=== PATIENT | female | born 1965 | race Caucasian/White ===

== ENCOUNTER → 2016-09-09 | Outpatient (CLI) | payer OTHER ==
--- NOTE | 2016-09-09 14:57 | MA ---
Screening Digital Mammogram With iCAD Analysis Clinical Indications: Routine screening. Patient has had a benign right breast stereotactic biopsy. Technique: Standard cephalocaudal projections are obtained. Digital breast tomosynthesis was performe d in the MLO projection with reconstruction at 1.0 mm slice thickness and composite MLO views reconst ructed. This examination is processed by the iCAD computer aided detection system. Comparison: September 2015, August 2014, August 2013, August 2012, August 2011, August 2010, adela2009, January 2009, August 2008. Breast density: Type B; Scattered fibroglandular densities. Findings: CAD was reviewed. No masses, suspicious calcifications or secondary signs of malignancy are seen. There has been no significant change in the appearance of either breast. Impression: Negative mammogram. BI-RADS 1. Recommendation: Routine mammographic screening in one year as long as physical examination is negativ [facility] Negative mammography should not preclude additional workup of a clinically suspicious finding. The patient's information is entered into a reminder system with a target due date for her next mammo gram.
== END ==
LOC: FIMAGING 12:39
DX: Z12.31 Encounter for screening mammogram for malignant neoplasm of breast (principal)
CPT/HCPCS: G0202

== ENCOUNTER → 2017-09-10 | Outpatient (CLI) | payer OTHER | LOC: FIMAGING 12:54 | PROVIDERS: ATTEND Physician Assistant | DX: Z12.31 Encounter for screening mammogram for malignant neoplasm of breast (principal) ==

== ENCOUNTER 2017-09-23 09:55 | Observation (INO) | payer OTHER ==
--- NOTE | 2017-09-23 09:56 | EDPHY ---
H & P Time Seen by Provider: 09/23/17 09:56 Constitutional: Initial Vital Signs Heart Rate 67 09/23/17 10:11 Respiratory Rate 24 H 09/23/17 10:11 Blood Pressure 119/79 09/23/17 10:11 O2 Sat (%) 100 09/23/17 10:11 O2 Delivery Mode Nasal Cannula O2 (L/minute) 2 Allergies/Adverse Reactions: amoxicillin [Amoxicillin] Allergy (Severe, Verified 09/23/17 10:10) Anaphylaxis meperidine [Meperidine] Allergy (Intermediate, Verified 09/23/17 10:10) Vomiting NUTS Allergy (Severe, Uncoded 09/23/17 10:10) Anaphylaxis Home Medications: Medication Instructions Recorded Advair 100/50 (*) 09/23/17 Lisinopril 09/23/17 Medical Decision Making - Diagnostics Imaging Results: Imaging Impressions Abdomen Ultrasound 09/23/17 10:15 Impression: 1. Large cystic mass in the right side of the abdomen extending from the gallbladder fossa inferiorly to the pelvis with soft tissue components posteriorly. There is tapering along the inferior margin. This could represent cystadenoma/cystadenocarcinoma carcinoma of the right ovary versus possibility of large hydrosalpinx or isolated fallopian tube torsion. Mucinous tumor of the appendix may also be considered. CT of the abdomen and pelvis with contrast is recommended for further characterization. 2. Numerous uterine fibroids are identified. 3. The left ovary appears to be normal. Findings discussed with Doug Fishman MD at 12:00 hour, 09/23/2017. Pelvic/Renal Ultrasound 09/23/17 10:15 Impression: 1. Large cystic mass in the right side of the abdomen extending from the gallbladder fossa inferiorly to the pelvis with soft tissue components posteriorly. There is tapering along the inferior margin. This could represent cystadenoma/cystadenocarcinoma carcinoma of the right ovary versus possibility of large hydrosalpinx or isolated fallopian tube torsion. Mucinous tumor of the appendix may also be considered. CT of the abdomen and pelvis with contrast is recommended for further characterization. 2. Numerous uterine fibroids are identified. 3. The left ovary appears to be normal. Findings discussed with Doug Fishman MD at 12:00 hour, 09/23/2017. Abdomen CT 09/23/17 11:58 Impression: 1. Large complex cystic mass right mid abdomen extending into the pelvis with twisting of the right adnexal pedicle adjacent to the uterus. This could represent large hemorrhagic or neoplastic ovarian cystic lesion with torsion versus possibility of fallopian tube torsion. 2. Moderate thickening of the appendix in the right lower quadrant. There may be superimposed appendicitis versus possibility of vascular compromise of the appendix secondary to the right adnexal torsion. 3. Probable uterine fibroids. Consider follow-up imaging as clinically directed. 4. Mild right-sided hydronephrosis secondary to compression upon the right ureter by the right sided abdominal mass. 5. Hypodense lesions in the liver probably representing hemangiomas. Consider follow-up ultrasound of the liver to confirm adequate visualization and subsequent follow-up with ultrasound in 6 months. Findings discussed with Doug Fishman MD at 14:30 hour, 09/23/2017. Imaging: Discussed imaging studies w/ inbound call center agent Radiologist ED Course/Re-evaluation: CHIEF COMPLAINT: RLQ pain HISTORY OF PRESENT ILLNESS: This patient is a 52 y/o female complaining of sudden onset RLQ pain. This morning, she felt well and went out for her regular errands. She developed a stabbing pain in her lower right quadrant, and returned home and took ibuprofen for pain relief. Later this morning, she went for a routine mammography appointment and her pain returned. She went to the bathroom and could not get up due to pain. The pain is localized to her right lower quadrant and feels like "stabbing". She is unable to get comfortable. She has been nauseous and vomited earlier. LMP one week ago but is perimenopausal. She denies fever, chills, diarrhea, urinary complaints, or other associated symptoms. REVIEW OF SYSTEMS: A 10 point review of systems was performed and is negative with the exception of the elements mentioned in the history of present illness. PHYSICAL EXAM: HR, BP, O2 Sat, RR. Temp noted General Appearance: Alert, well hydrated, appropriate, and non-toxic appearing. Head: Atraumatic without scalp tenderness or obvious injury Eyes: Pupils equal, round, reactive to light and accommodation, EOMI, no trauma , no injection. Ears: Clear bilaterally, no perforation, normal landmarks Nose: Atraumatic, no rhinorrhea, clear. Throat: There is no erythema or exudates, no lesions, normal tonsils, mucus membranes moist. Neck: Supple, 2+ carotid upstroke, nontender, no lymphadenopathy. Respiratory: No retractions, no distress, no wheezes, and no accessory muscle use. Lungs are clear to auscultation bilaterally. Cardiovascular: Regular rate and rhythm, no murmurs, rubs, or gallops. Bilateral carotid, radial, dorsalis pedis, and posterior tibial pulses intact. Good capillary refill all extremities. Gastrointestinal: Exquisite RLQ tenderness. Abdomen is soft, non-distended, no masses, no rebound, no guarding, no peritoneal signs. Musculoskeletal: Normal active ROM of all extremities, atraumatic. Neurological: Alert, appropriate, and interactive. The patient has normal DTRs and non-focal cranial nerves, motor, sensory, and cerebellar exam. Skin: No rashes, good turgor, no nodules on palpation. Past medical history: Uterine fibroids. Past surgical history: Noncontributory. Family history: Noncontributory. Social history: Lives in [place]. . PCP: Erin Cano. DIAGNOSTICS/PROCEDURES/CRITICAL CARE TIME: DIFFERENTIAL DIAGNOSIS: The differential diagnosis for the patient's abdominal pain included but was not limited to ovarian cyst, pelvic inflammatory disease, ovarian torsion, urinary tract infection, ectopic , cholecystitis, and appendicitis. MEDICAL DECISION MAKIN52 year old female presents with acute onset exquisite RLQ pain. Plan for US RLQ , labs including CBC, chemistries, liver/lipase, BHCG. 11:[address] Glynn, radiologist. US abdomen shows abnormal finding, plan for CT abdomen/pelvis with contrast for further evaluation. 14:[address] Glynn, radiologist. CT shows probable torsed hemorrhagic ovarian cyst. Additionally, the patient has an enlarged appendix, 11mm, positive for appendicitis. Plan to consult with Dr. Lira, general surgeon. 14:[address] Lira, general surgeon. He is currently in surgery but will consult. Plan to consult with STOPE MINER. 14:50 Reassessed patient. Discussed results of imaging studies. Plan to admit for perioperative management. Sheis comfortable with this plan. 15:00 Care of this patient transferred to Dr. Stokes at shift change. STOPE MINER and surgical consults pending. 15:[address] Cespedes, STOPE MINER. - Data Points Laboratory Results: Laboratory Results 09/23/17 10:27 09/23/17 10:27 09/23/17 09/23/17 09/23/17 11:20 10:27 10:27 WBC RBC Hgb POC Hgb Hct POC Hct MCV MCH MCHC RDW Plt Count MPV Neut % (Auto) Lymph % (Auto) [place] % (Auto) Eos % (Auto) Baso % (Auto) Nucleat RBC Rel Count Absolute Neuts (auto) Absolute Lymphs (auto) Absolute Monos (auto) Absolute Eos (auto) Absolute Basos (auto) Absolute Nucleated RBC Immature Gran % Immature Gran # POC Sodium Sodium 144 mEq/L mEq/L (135-145) POC Potassium Potassium 4.2 mEq/L mEq/L (3.5-5.2) POC Chloride Chloride 110 mEq/L mEq/L (97-110) Carbon Dioxide 16 mEq/l L mEq/l (22-31) Anion Gap 18 mEq/L H mEq/L (8-16) POC BUN BUN 15 mg/dL mg/dL (7-23) Creatinine 0.7 mg/dL mg/dL (0.6-1.0) POC Creatinine Estimated GFR > 60 Glucose 110 mg/dL H mg/dL (70-100) POC Glucose Calcium 9.9 mg/dL mg/dL (8.5-10.4) Total Bilirubin 0.7 mg/dL mg/dL (0.1-1.4) Conjugated Bilirubin 0.3 mg/dL mg/dL (0.0-0.5) Unconjugated Bilirubin 0.4 mg/dL mg/dL (0.0-1.1) AST 28 IU/L IU/L (14-46) ALT 33 IU/L IU/L (9-52) Alkaline Phosphatase 67 IU/L IU/L (38-126) Total Protein 7.2 g/dL g/dL (6.3-8.2) Albumin 4.5 g/dL g/dL (3.5-5.0) Lipase 67 IU/L IU/L (23-300) Beta HCG, Qual NEGATIVE Urine Color PALE YELLOW Urine Appearance CLEAR Urine pH 7.0 (5.0-7.5) Ur Specific [place] 1.014 (1.002-1.030) Urine Protein NEGATIVE (NEGATIVE) Urine Ketones 1+ H (NEGATIVE) Urine Blood NEGATIVE (NEGATIVE) Urine Nitrate NEGATIVE (NEGATIVE) Urine Bilirubin NEGATIVE (NEGATIVE) Urine Urobilinogen NEGATIVE EU EU (0.2-1.0) Ur Leukocyte Esterase NEGATIVE (NEGATIVE) Urine RBC 1-3 /hpf /hpf (0-3) Urine WBC 1-3 /hpf /hpf (0-3) Ur Epithelial Cells TRACE /lpf /lpf (NONE-1+) Urine Bacteria TRACE /hpf H /hpf (NONE SEEN) Urine Mucus TRACE /lpf /lpf (NONE-1+) Urine Glucose 1+ H (NEGATIVE) 09/23/17 09/23/17 09/23/17 10:27 10:23 10:01 WBC 11.19 10^3/uL H 10^3/uL (3.80-9.50) RBC 4.97 10^6/uL 10^6/uL (4.18-5.33) Hgb 15.0 g/dL g/dL (12.6-16.3) POC Hgb 15.0 gm/dL gm/dL Pending (12.6-16.3) Hct 44.6 % % (38.0-47.0) POC Hct 44 % % < 15 % L* % (38-47) (38-47) MCV 89.7 fL fL (81.5-99.8) MCH 30.2 pg pg (27.9-34.1) MCHC 33.6 g/dL g/dL (32.4-36.7) RDW 12.5 % % (11.5-15.2) Plt Count 223 10^3/uL 10^3/uL (150-400) MPV 9.3 fL fL (8.7-11.7) Neut % (Auto) 85.2 % H % (39.3-74.2) Lymph % (Auto) 10.5 % L % (15.0-45.0) [place] % (Auto) 3.2 % L % (4.5-13.0) Eos % (Auto) 0.1 % L % (0.6-7.6) Baso % (Auto) 0.4 % % (0.3-1.7) Nucleat RBC Rel Count 0.0 % % (0.0-0.2) Absolute Neuts (auto) 9.54 10^3/uL H 10^3/uL (1.70-6.50) Absolute Lymphs (auto) 1.17 10^3/uL 10^3/uL (1.00-3.00) Absolute Monos (auto) 0.36 10^3/uL 10^3/uL (0.30-0.80) Absolute Eos (auto) 0.01 10^3/uL L 10^3/uL (0.03-0.40) Absolute Basos (auto) 0.04 10^3/uL 10^3/uL (0.02-0.10) Absolute Nucleated RBC 0.00 10^3/uL 10^3/uL (0-0.01) Immature Gran % 0.6 % % (0.0-1.1) Immature Gran # 0.07 10^3/uL 10^3/uL (0.00-0.10) POC Sodium 143 mEq/L mEq/L 155 mEq/L H mEq/L (135-145) (135-145) Sodium POC Potassium 3.8 mEq/L mEq/L < 2.0 mEq/L L* mEq/L (3.3-5.0) (3.3-5.0) Potassium POC Chloride 104 mEq/L mEq/L 125 mEq/L H mEq/L (97-110) (97-110) Chloride Carbon Dioxide Anion Gap POC BUN 31 mg/dL H mg/dL < 3 mg/dL L mg/dL (7-23) (7-23) BUN Creatinine POC Creatinine 0.7 mg/dL D mg/dL < 0.2 mg/dL L mg/dL (0.6-1.0) (0.6-1.0) Estimated GFR Glucose POC Glucose 116 mg/dL H mg/dL 38 mg/dL L* mg/dL (70-100) (70-100) Calcium Total Bilirubin Conjugated Bilirubin Unconjugated Bilirubin AST ALT Alkaline Phosphatase Total Protein Albumin Lipase Beta HCG, Qual Urine Color Urine Appearance Urine pH Ur Specific [place] Urine Protein Urine Ketones Urine Blood Urine Nitrate Urine Bilirubin Urine Urobilinogen Ur Leukocyte Esterase Urine RBC Urine WBC Ur Epithelial Cells Urine Bacteria Urine Mucus Urine Glucose Medications Given: Discontinued Medications Hydromorphone HCl (Dilaudid) 1 mg IVP EDNOW ONE Stop: 09/23/17 10:15 Last Admin: 09/23/17 10:22 Dose: 1 mg Hydromorphone HCl (Dilaudid) 0.5 mg IVP EDNOW ONE Stop: 09/23/17 11:00 Last Admin: 09/23/17 11:00 Dose: 0.5 mg Hydromorphone HCl (Dilaudid) 0.5 mg IVP EDNOW ONE Stop: 09/23/17 13:20 Last Admin: 09/23/17 13:20 Dose: 0.5 mg Sodium Chloride (Ns) 1,000 mls @ 0 mls/hr IV EDNOW ONE; Wide Open PRN Reason: Protocol Stop: 09/23/17 10:15 Last Admin: 09/23/17 10:22 Dose: 1,000 mls Ondansetron HCl (Zofran) 4 mg IVP EDNOW ONE Stop: 09/23/17 10:15 Last Admin: 09/23/17 10:22 Dose: 4 mg Ondansetron HCl (Zofran) 4 mg IVP EDNOW ONE Stop: 09/23/17 14:07 Last Admin: 09/23/17 14:09 Dose: 4 mg Point of Care Test Results: 09/23/17 09/23/17 10:01 10:23 POC Sodium 155 H 143 POC Potassium < 2.0 L* 3.8 POC Chloride 125 H 104 POC BUN < 3 L 31 H POC Creatinine < 0.2 L 0.7 D POC Glucose 38 L* 116 H Departure - Departure Disposition: [facility] Inpatient Acute Clinical Impression: Hemorrhagic cyst of right ovary Appendicitis Qualifiers: Appendicitis type: acute appendicitis Acute appendicitis type: other Qualified Code(s): K35.89 - Other acute appendicitis Condition: Fair Referrals: Erin Cano PA [Primary Care Provider] - As per Instructions Report Scribed for: Doug Fishman Report Scribed by: Argelia Lam Date of Report: 09/23/17 Time of Report: 15:10
[2017-09-23] MEDS ORDERED: ONDANSETRON 4 MG/2 ML VIAL IVP ONE ×3 (10:14→17:03)
[2017-09-23] MEDS ORDERED: NS 1,000 ML IV ONE (10:14)
[2017-09-23] MEDS ORDERED: HYDROmorphONE/DILAUDID 1 MG/ML INJ IVP ONE ×4 (10:14→15:57)
[2017-09-23] MEDS ORDERED: HYDROmorphONE/DILAUDID 2 MG/ML INJ ONE ×2 (10:17→13:16)
[2017-09-23 10:37] LABS: PLATELET COUNT 223 10^3/uL (150-400)
[2017-09-23] MEDS ORDERED: ONDANSETRON 4 MG/2 ML VIAL ONE (14:08)
--- NOTE | 2017-09-23 15:43 | PDCONSULT ---
[employer] Note: Physician requesting Consult: Dr. Mary Physician consulting: Dr. Jon Diagnosis: large right ovarian cyst with torsion, enlarged appendix and fibroid uterus. large right complex cystic mass 15 x 10 x 9 cm. Please see dictation Laboratory Results 09/23/17 10:27 09/23/17 10:27 09/23/17 09/23/17 09/23/17 11:20 10:27 10:27 WBC RBC Hgb POC Hgb Hct POC Hct MCV MCH MCHC RDW Plt Count MPV Neut % (Auto) Lymph % (Auto) [place] % (Auto) Eos % (Auto) Baso % (Auto) Nucleat RBC Rel Count Absolute Neuts (auto) Absolute Lymphs (auto) Absolute Monos (auto) Absolute Eos (auto) Absolute Basos (auto) Absolute Nucleated RBC Immature Gran % Immature Gran # POC Sodium Sodium 144 mEq/L mEq/L (135-145) POC Potassium Potassium 4.2 mEq/L mEq/L (3.5-5.2) POC Chloride Chloride 110 mEq/L mEq/L (97-110) Carbon Dioxide 16 mEq/l L mEq/l (22-31) Anion Gap 18 mEq/L H mEq/L (8-16) POC BUN BUN 15 mg/dL mg/dL (7-23) Creatinine 0.7 mg/dL mg/dL (0.6-1.0) POC Creatinine Estimated GFR > 60 Glucose 110 mg/dL H mg/dL (70-100) POC Glucose Calcium 9.9 mg/dL mg/dL (8.5-10.4) Total Bilirubin 0.7 mg/dL mg/dL (0.1-1.4) Conjugated Bilirubin 0.3 mg/dL mg/dL (0.0-0.5) Unconjugated Bilirubin 0.4 mg/dL mg/dL (0.0-1.1) AST 28 IU/L IU/L (14-46) ALT 33 IU/L IU/L (9-52) Alkaline Phosphatase 67 IU/L IU/L (38-126) Total Protein 7.2 g/dL g/dL (6.3-8.2) Albumin 4.5 g/dL g/dL (3.5-5.0) Lipase 67 IU/L IU/L (23-300) Beta HCG, Qual NEGATIVE Urine Color PALE YELLOW Urine Appearance CLEAR Urine pH 7.0 (5.0-7.5) Ur Specific [place] 1.014 (1.002-1.030) Urine Protein NEGATIVE (NEGATIVE) Urine Ketones 1+ H (NEGATIVE) Urine Blood NEGATIVE (NEGATIVE) Urine Nitrate NEGATIVE (NEGATIVE) Urine Bilirubin NEGATIVE (NEGATIVE) Urine Urobilinogen NEGATIVE EU EU (0.2-1.0) Ur Leukocyte Esterase NEGATIVE (NEGATIVE) Urine RBC 1-3 /hpf /hpf (0-3) Urine WBC 1-3 /hpf /hpf (0-3) Ur Epithelial Cells TRACE /lpf /lpf (NONE-1+) Urine Bacteria TRACE /hpf H /hpf (NONE SEEN) Urine Mucus TRACE /lpf /lpf (NONE-1+) Urine Glucose 1+ H (NEGATIVE) 09/23/17 09/23/17 09/23/17 10:27 10:23 10:01 WBC 11.19 10^3/uL H 10^3/uL (3.80-9.50) RBC 4.97 10^6/uL 10^6/uL (4.18-5.33) Hgb 15.0 g/dL g/dL (12.6-16.3) POC Hgb 15.0 gm/dL gm/dL Pending (12.6-16.3) Hct 44.6 % % (38.0-47.0) POC Hct 44 % % < 15 % L* % (38-47) (38-47) MCV 89.7 fL fL (81.5-99.8) MCH 30.2 pg pg (27.9-34.1) MCHC 33.6 g/dL g/dL (32.4-36.7) RDW 12.5 % % (11.5-15.2) Plt Count 223 10^3/uL 10^3/uL (150-400) MPV 9.3 fL fL (8.7-11.7) Neut % (Auto) 85.2 % H % (39.3-74.2) Lymph % (Auto) 10.5 % L % (15.0-45.0) [place] % (Auto) 3.2 % L % (4.5-13.0) Eos % (Auto) 0.1 % L % (0.6-7.6) Baso % (Auto) 0.4 % % (0.3-1.7) Nucleat RBC Rel Count 0.0 % % (0.0-0.2) Absolute Neuts (auto) 9.54 10^3/uL H 10^3/uL (1.70-6.50) Absolute Lymphs (auto) 1.17 10^3/uL 10^3/uL (1.00-3.00) Absolute Monos (auto) 0.36 10^3/uL 10^3/uL (0.30-0.80) Absolute Eos (auto) 0.01 10^3/uL L 10^3/uL (0.03-0.40) Absolute Basos (auto) 0.04 10^3/uL 10^3/uL (0.02-0.10) Absolute Nucleated RBC 0.00 10^3/uL 10^3/uL (0-0.01) Immature Gran % 0.6 % % (0.0-1.1) Immature Gran # 0.07 10^3/uL 10^3/uL (0.00-0.10) POC Sodium 143 mEq/L mEq/L 155 mEq/L H mEq/L (135-145) (135-145) Sodium POC Potassium 3.8 mEq/L mEq/L < 2.0 mEq/L L* mEq/L (3.3-5.0) (3.3-5.0) Potassium POC Chloride 104 mEq/L mEq/L 125 mEq/L H mEq/L (97-110) (97-110) Chloride Carbon Dioxide Anion Gap POC BUN 31 mg/dL H mg/dL < 3 mg/dL L mg/dL (7-23) (7-23) BUN Creatinine POC Creatinine 0.7 mg/dL D mg/dL < 0.2 mg/dL L mg/dL (0.6-1.0) (0.6-1.0) Estimated GFR Glucose POC Glucose 116 mg/dL H mg/dL 38 mg/dL L* mg/dL (70-100) (70-100) Calcium
[2017-09-23] MEDS ORDERED: LR 1,000 ML IV ONE ×4 (16:12)
--- NOTE | 2017-09-23 16:19 | PDCONSULT ---
Vascular Ultrasound Technician Note: CC: abd pain Surgical Consult was requested by Dr. Fishman for possible appendicitis. HPI: Breanna is a 52 y/o female with sudden onset of abdominal pain this morning. She came to the ED and a CT was performed which showed a large right ovarian cyst with associated ovarian torsion and a mildly dilated, but not inflammed appendix (11mm). She is resting more comfortably after receiving narcotic analgesics. She denies weight loss, melena, hematochezia, previous abdominal pain PMH: abdominoplasty, BTL, parathyroidectomy nulligravida HTN pet hair allergies meds: Lisinopril 10 mg po q day Advair 1 puff BID SH: here with a friend/ to Doug FH: [place] ROS: colonoscopy at age 49 negative PCP Erin Cano PA-C PE: [id number] WDWN female in mild distress HEEN: no scleral icterus/adenopathy Lungs: CTA w/out wheezing CVS: RRR/elma Abd: hypoactive bowel sounds, tender right abdomen-vague, no guarding/rebound vague mass RUQ Pelvic: not performed Rectal: not performed neuro/psych: appropriate affect/O x 3 wbc 11.2 Hgb 15.0 Hct 44.6 plat 223K Na+[address] reviewed: large right ovarian cyst with torsion/evidence of prior TL with metallic clips mildly dilated appendix without eduin-appendiceal inflammatory changes, no appendicolith IMP: ovarian cyst with torsion dilated appendix Rec: evaluate and remove appendix at the time of her acute cyst management pre-op Ancef o.k. as patient has taken cephalosporins in the past without adverse reaction we discussed appendectomy, potential risks of surgery including infection informed consent was obtained.. Seven Lira MD, FACS
[2017-09-23] MEDS ORDERED: ceFAZolin 2 GM/SWFI 2 GM/20 ML SYR IVP ONE (17:03)
[2017-09-23] MEDS ORDERED: DEXAMETHASONE 4 MG/ML VIAL IVP ONE (17:03)
[2017-09-23] MEDS ORDERED: ceFAZolin 2 GM/SWFI 20 ML SYR IVP ONE (17:11)
[2017-09-23] MEDS ORDERED: LR 1,000 ML IV SCH (17:30)
[2017-09-23] MEDS ORDERED: MIDAZOLAM 2 MG/2 ML VIAL IVP ONE (17:33)
[2017-09-23] MEDS ORDERED: MIDAZOLAM 2 MG/2 ML VIAL ONE (17:37)
[2017-09-23] MEDS ORDERED: PROPOFOL/EMULSION 500 MG/50 ML BOTTLE IV ONE ×2 (17:48→19:46)
[2017-09-23] MEDS ORDERED: fentaNYL 100 MCG/2 ML INJ ONE (17:48)
[2017-09-23] MEDS ORDERED: LIDOCAINE HCL 160 MG/4 ML LTA KIT TP ONE (17:50)
[2017-09-23] MEDS ORDERED: LIDOCAINE 2% 100 MG/5 ML SYR ONE (17:51)
[2017-09-23] MEDS ORDERED: ROCURONIUM 50 MG/5 ML VIAL ONE (17:51)
--- NOTE | 2017-09-23 17:55 | GHP ---
[f rep st] PREOP HISTORY AND PHYSICAL DATE OF ADMISSION: 09/23/2017 HISTORY OF PRESENT ILLNESS: Patient is a 52-year-old G1, P0 woman whose last menstrual period was 1 week ago who presents with a sudden onset of right lower quadrant pain. Patient states that she had one episode early this morning at approximately 7:00/7:15, and then a second episode around 9:15 while patient was going to get a mammogram. At that time, she went to the bathroom feeling like she had a hot flash and then was on the bathroom floor. Patient denies collapse. She did not lose consciousness but at that time pain was debilitating and caused her to double over in pain. Patient had some nausea and vomiting earlier that day. PHYSICAL EXAMINATION: VITAL SIGNS: Her blood pressure was 160/100 and a pulse of 120. LUNGS: Clear to auscultation bilateral. HEART: Regular rate and rhythm. PELVIC EXAM: Speculum exam revealed normal pink vaginal mucosa. No abnormal discharge, no blood and cervical os appeared closed. On bimanual exam, posterior to the cervix, there was a significant amount of fullness in the cul- de-sac and significant tenderness on abdominal exam. IMAGING STUDIES: Patient had a pelvic and renal ultrasound which revealed a large cystic mass on the right side on the right ovary measuring approximately 15 x 10 x 9 cm in size. It appeared to be a complex cystic mass. The CT scan revealed that the right cystic mass was also torsed and that there was possibly an enlarged appendix. ASSESSMENT: 1. Pelvic pain. 2. Possibly complex right ovarian cyst. 3. Enlarged appendix. PLAN: Patient will be admitted to the hospital. Will remain n.p.o. Patient will undergo a laparoscopic possible right cystectomy versus right salpingo oophorectomy with assistance in the operating room by general surgeon Dr. Lira, with Dr. Yasmin Ceja. /[id number]/MODL MTDD
--- NOTE | 2017-09-23 18:13 | PDANEPAE ---
ANE History of Present Illness diag lap and RSO for mass/ovarian torsion +/- appy ANE Past Medical History - Cardiovascular History Hx Hypertension: Yes - Pulmonary History Hx Asthma/Reactive Airway Disease: Yes Hx Oxygen in Use at Home: No Hx Sleep Apnea: No - Endocrine History Hx Diabetes: No ANE Review of Systems Review of Systems: - Exercise capacity Exercise capacity: >=4 METS ANE Patient History - Allergies Allergies/Adverse Reactions: amoxicillin [Amoxicillin] Allergy (Severe, Verified 09/23/17 10:10) Anaphylaxis meperidine [Meperidine] Allergy (Intermediate, Verified 09/23/17 10:10) Vomiting NUTS Allergy (Severe, Uncoded 09/23/17 10:10) Anaphylaxis - Home Medications Home medications: home medication list seen and reviewed Home Medications: Advair 100/50 (*) 09/23/17 [Last Taken 09/23/17 07:00] Lisinopril 09/23/17 [Last Taken 09/23/17 07:00] - NPO status NPO Status: no food or drink >8 hours NPO Since - Liquids (Date): 09/23/17 NPO Since - Liquids (Time): 08:30 NPO Since - Solids (Date): 09/23/17 NPO Since - Solids (Time): 08:30 - Anes Hx Anes Hx: no prior problems - Smoking Hx Smoking Status: Never smoked - Alcohol Use Alcohol Use: Rarely ANE Labs/Vital Signs - Labs Result Diagrams: 09/23/17 10:27 09/23/17 10:27 - Vital Signs Blood Pressure: 154/94 Heart Rate: 56 Respiratory Rate: 15 O2 Sat (%): 100 Height: 157.48 cm Weight: 63.503 kg ANE Physical Exam - Airway Mallampati Score: Class 2 Mouth exam: normal dental/mouth exam - Pulmonary Pulmonary: no respiratory distress - Cardiovascular Cardiovascular: regular rate and rhythym - ASA Status ASA Status: II ANE Anesthesia Plan Anesthesia Plan: general endotracheal anesthesia Urgent/Emergent Case: Kayleen enriquez completed preop but documented later for safe timely pt care (T&S not indicated)
[2017-09-23] MEDS ORDERED: DEXAMETHASONE 4 MG/ML VIAL ONE (18:15)
[2017-09-23] MEDS ORDERED: PHENYLEPHRINE HCL 100 MCG/ML SYR ONE (18:15)
[2017-09-23] MEDS ORDERED: ONDANSETRON DISINTEGRATING 4 MG TAB PO PRN (20:53)
[2017-09-23] MEDS ORDERED: SUGAMMADEX SODIUM 200 MG/2 ML VIAL IVP ONE (21:00)
--- NOTE | 2017-09-23 21:07 | POSTOPPROG ---
Post Op Note Date of Operation: 09/23/17 Surgeon: Yasmin Ceja [facility] Laborer: Mc Lira Anesthesiologist: Keenan Englihs Anesthesia: GET(General Endotracheal) Pre-op Diagnosis: Right torsed enlarged adnexa 15 cm, acute pain, enlarged appendix Post-op Diagnosis: ischemic enlarged RSO, torsed 3x, cautery close to TI- reinforcing stitch Indication: acute pain today and u/s showing rt adnexa 15 cm with torsion, enlarged lanette Procedure: LSC RSO, appendectomy Findings: iscemic enlarged Rt tube/ovary, torsion near TI, ureter sl dilated - seen Inf/Abcess present in the surg proc area at time of surgery?: No Depth: Organ Space EBL: 50-100 Complications: slight ischemic injury superficially to TI adjacent to IP from torsed RSO. significant post fundal fibroid larger than uterus, mult other smaller fibroids posteriorly, left ovary appeared normal behind uterus. thickened appi , nl liver edge. LLQ 12 mm port - when RSO brought up to incision - opened cyst with scalpel and abundant clear - blood tinged fluid expelled and likely contaminant into abd at port site around bag edges. ov cyst full of clotted blood - incision enlarged to allow removal. add'n SP port placed by Dr Lira for appi. [place] a supportive stitch at site of superficial ischemic injury prudent. Dr Lira closed incisions. Specimen(s): RSO, appendix
[2017-09-23] MEDS ORDERED: HYDROCODONE/APAP 5/325 TAB PO PRN (21:09)
[2017-09-23] MEDS ORDERED: NALOXONE HCL 0.4 MG/ML INJ IVP PRN (21:09)
[2017-09-23] MEDS ORDERED: LR 500 ML IV PRN (21:09)
[2017-09-23] MEDS ORDERED: ALBUTEROL 3 ML DEYVIAL IH PRN (21:09)
[2017-09-23] MEDS ORDERED: OXYCODONE/APAP 5/325 TAB PO PRN (21:09)
[2017-09-23] MEDS ORDERED: fentaNYL 100 MCG/2 ML INJ IVP PRN (21:09)
[2017-09-23] MEDS ORDERED: ONDANSETRON 4 MG/2 ML VIAL IVP PRN (21:09)
[2017-09-23] MEDS ORDERED: LABETALOL HCL 5 MG/ML 20 ML MDV IVP PRN (21:09)
[2017-09-23] MEDS ORDERED: DEXAMETHASONE 4 MG/ML VIAL IVP PRN (21:09)
[2017-09-23] MEDS ORDERED: PHENYLEPHRINE HCL 100 MCG/ML SYR IVP PRN (21:09)
[2017-09-23] MEDS ORDERED: METOCLOPRAMIDE 10 MG/2 ML VIAL IVP PRN (21:09)
[2017-09-23] MEDS ORDERED: ACETAMINOPHEN 500 MG TAB PO PRN (21:09)
--- NOTE | 2017-09-23 21:29 | POSTOPPROG ---
Post Op Note Date of Operation: 09/23/17 Surgeon: Mc Lira (, FACS) [employer]: Lindsay Pastor PAS-3 Anesthesiologist: Keenan English MD Anesthesia: GET(General Endotracheal) Pre-op Diagnosis: dialated appendix Post-op Diagnosis: dilated appendix, serosal thermal injury TI Procedure: laparoscopic enteroraphy/appendectomy Findings: dilated appendix without acute inflammation/4-5 mm thermal injury TI Inf/Abcess present in the surg proc area at time of surgery?: No EBL: Minimal (5 ml) Specimen(s): appendix
[2017-09-23] MEDS ORDERED: ceFAZolin 2 GM/DEXTROSE 100 ML IV SCH (22:00)
[2017-09-23] MEDS: KETOROLAC 30 MG/1 ML SDV IVP PRN (23:19)
--- NOTE | 2017-09-24 01:53 | GOP ---
[f rep st] OPERATIVE REPORT DATE OF OPERATION: 09/23/2017 SURGEON: Mc Lira MD, FACS IT ASSISTANT: JAVIER Benites. ANESTHESIA: General endotracheal. ANESTHESIOLOGIST: Keenan English MD. PREOPERATIVE DIAGNOSIS: 1. Dilated appendix of unclear etiology. 2. Ovarian cyst with acute torsion. POSTOPERATIVE DIAGNOSIS: 1. Dilated appendix of unclear etiology. 2. Serosal thermal injury of the terminal ilium. PROCEDURE PERFORMED: 1. Laparoscopic enterorrhaphy. 2. Laparoscopic appendectomy. FINDINGS: After Dr. Ceja had completed the laparoscopic detorsion and resection of the right tube and ovary, an adhesion between the terminal ilium and the pelvic sidewall was noted near the area of cautery dissection. There was a minimal superficial thermal injury of the terminal ileal serosa that was oversewn with a Lembert suture using 3-0 Vicryl to approximate the serosa over the injury. The dilated appendix had no apparent etiology but was dilated in the midportion to the tip. This was excised with a cuff of cecal tissue and was submitted for permanent section. DESCRIPTION OF PROCEDURE: After informed consent was obtained, the patient was brought to the operating room. She was placed under general anesthesia by Dr. English and positioned carefully in lithotomy position. Dr. Ceja performed laparoscopic right salpingo-oophorectomy with detorsion of the ovary, to be dictated as a separate operative report. I scrubbed into the case to assist on this portion of the operation, and when she completed this portion of the operation, I inspected the operative field. The terminal ileum was inspected as it lay over the pelvic brim. It was noted to be tethered with an adhesion higher up on the side of the pelvis. In dissecting the terminal ilium away from the pelvic sidewall, it was noted that there was an area of charring close to the terminal ilium, and upon closer inspection, an area of blanching of the terminal ileal serosa. This was left for observation for a period of time while I dissected the appendix, which was partially retrocecal. The peritoneal was taken down lateral to the cecum fully mobilizing the appendix, which though it appeared dilated, did not appear acutely inflamed. There was dilatation in the midportion of the appendix to the tip. The base was soft and normal in diameter. Before proceeding with appendectomy, I elected to perform an enterorrhaphy, oversewing the area of thermal injury to prevent a delayed perforation. A 3-0 Vicryl suture on an SH was bent to form a ski needle. This was passed through the 12 mm port in the left lower quadrant, and using laparoscopic needle drivers, the serosa of the terminal ileum was sutured to itself in a Lembert fashion over the 4-5 mm area of thermal injury. This resulted in complete coverage of the area, and no further sutures were required. Laparoscopic appendectomy was then performed as follows. The mesoappendix was taken down with the Harmonic scalpel with essentially no bleeding. The appendix was from the cecum along with a cuff of cecal tissue using a single firing of the 45 mm Endo-BRENDON stapler. Specimen was retrieved with an Endopouch through the left lower quadrant port site. The 12 mm port was returned to the peritoneal cavity, and the peritoneal cavity was irrigated with a liter of warm normal saline solution and the operative field inspected 1 more time for hemostasis, which appeared secure. The omentum was draped over the cecum and terminal ilium, the remainder of the bowel appeared unremarkable. The patient did have a large pedunculated fundal uterine fibroid that filled the pelvis. The pneumoperitoneum was evacuated. The remaining ports were removed. The peritoneum was closed with 2-0 Vicryl suture. The muscle layer was approximated with 2-0 Vicryl suture. The subfascial tissues were infiltrated with 0.25% Marcaine with epinephrine. The fascia was closed with 0 PDS suture, and the subcutaneous tissues were closed with 3-0 Monocryl suture. Skin of all incisions was closed with 4-0 Monocryl suture in a subcuticular fashion, including the umbilicus, suprapubic, and right lower quadrant incisions. Mastisol and Steri-Strips were applied followed by Telfa and OpSite. The patient was extubated and brought to the recovery room in satisfactory condition. Needle, sponge, and instrument count were correct. Estimated blood loss for this portion of the procedure 5 mL. COMPLICATIONS: None. /[id number]/MODL MTDD
[2017-09-24] MEDS: HYDROCODONE/APAP 5/325 TAB PO PRN ×3 (02:16→10:23)
[2017-09-24] MEDS: KETOROLAC 30 MG/1 ML SDV IVP PRN (06:11)
[2017-09-24 06:28] VITALS: RESP 16
[2017-09-24 06:43] LABS: PLATELET COUNT 192 10^3/uL (150-400)
--- NOTE | 2017-09-24 08:34 | SOAPPROG ---
SOAP Progress Note Assessment/Plan: Assessment: s/p lap appendectomy/enterorrhaphy at the time of resection right ovarian torsion mild hypotension without evidence of active bleeding Plan: discussed findings at surgery and expected recovery. We discussed activity, diet and wound care. I would continue to hold Lisinopril and restart as outpatient. FU my office 1-2 weeks 09/24/17 08:31 Subjective: feeling better/tolerated liquids/voiding without difficulty Objective: Vital Signs Temp Pulse Resp BP Pulse Ox 36.9 C 77 16 85/55 L 94 09/24/17 06:27 09/24/17 06:27 09/24/17 06:27 09/24/17 06:27 09/24/17 06:27 Laboratory Results 09/24/17 06:20 09/23/17 09/24/17 09/25/17 05:59 05:59 05:59 Intake Total 2300 Output Total 450 Balance 1850 Physical Exam - Physical Exam General Appearance: no apparent distress Cardiac/Chest: regular rate, rhythm Abdomen: soft, other (dressings dry, hypoactive bowel sounds) Neuro/Psych: alert, normal mood/affect, oriented x 3 ICD10 Worksheet Patient Problems: Problems Problem Status Onset Appendicitis Acute Hemorrhagic cyst of right ovary Acute S/P laparoscopic appendectomy Acute S/P laparoscopy Acute S/P right oophorectomy Acute
[2017-09-24] MEDS ORDERED: SENNOSIDES/DOCUSATE SODIUM TAB PO SCH (09:00)
--- NOTE | 2017-09-24 10:15 | PDDCSUM ---
Discharge Summary Discharge Summary: S) Pt doing well, she reports moderate abdominal pain- relieved with norco. She reports pain worse with ambulation, denies any pain when laying in bed. She denies any vaginal bleeding. She denies any flatus at this time- but states she is feeling "gurgly". O) VSS, hypotensive, but asymptomatic constitutional: WN/WF HEENT: normocephalic, atraumatic, supple Chest: CTA-B Heart: RRR, no murmur Abdomen: soft, nontender, +BSx4, incision dressings C/D/I, no erythema, no exudate, no edema Extremities: WNL, neg edema, negative lorraine's sign Neuro: grossly normal psych: appropriate A)52yo s/p ovarian torsion POD#1 P) routine post op care repeat CBC @ 12pm, if stable WBC may d/c home discussed danger/warning S&S- pt aware to call if any occur RTO in 2 weeks for post op visit Reviewed with Dr. Robbins- agrees with POC
[2017-09-24 11:23] VITALS: BP 84/50; PULSE 69; TEMP 98.1; O2SAT 91
[2017-09-24] MEDS: ceFAZolin 2 GM/SWFI 2 GM/20 ML SYR IVP SCH (11:32)
--- NOTE | 2017-09-29 05:48 | POSTANESTH ---
Post Anesthetic Evaluation Cardiovascular Status: Normal, Stable Respiratory Status: Normal, Stable Level of Consciousness/Mental Status: Can Participate in Eval Pain Control: Adequate, Prn Tx Ordered Nausea/Vomiting Control: Adequate, Prn Tx Ordered Complications Possibly Related to Anesthesia: None Noted (Evaluation performed about 2200 in the PACU on 09/23/17)
== END 2017-09-24 13:25 | disposition home or self-care (01) ==
LOC: FSGY 16:35 → F3E 20:56 → UNDOADMOB 20:56 → F3E 22:15 → FOB 22:15
PROVIDERS: ADMIT Obstetrics & Gynecology; ATTEND Obstetrics & Gynecology
DX: N83.511 Torsion of right ovary and ovarian pedicle (principal); N83.291 Other ovarian cyst, right side; K38.8 Other specified diseases of appendix; K91.81 Other intraoperative complications of digestive system; D25.9 Leiomyoma of uterus, unspecified; N13.30 Unspecified hydronephrosis; E86.9 Volume depletion, unspecified; R93.2 Abnormal findings on diagnostic imaging of liver and biliary tract; I10 Essential (primary) hypertension; Z88.0 Allergy status to penicillin
CPT/HCPCS: 44970; 58661; 74177; 76705; 76856; G0378; 82947-QW; J0690; J1100; J1170; J1885; J2001; J2250; J2370; J2405; J2704; J3010

== ENCOUNTER → 2017-09-29 | Outpatient (CLI) | payer OTHER ==
[~2017-09-29] MED LIST: BUPIVACAINE/EPI 0.5% 30 ML SDV ONE; IOPAMIDOL (ISOVUE-300) 100 ML BTL ONE
== END ==
LOC: FIMAGING 09-23 09:25
PROVIDERS: ATTEND Physician Assistant
DX: R92.8 Other abnormal and inconclusive findings on diagnostic imaging of breast (principal)
CPT/HCPCS: Q9967

== ENCOUNTER → 2018-02-25 | Outpatient (CLI) | payer OTHER | LOC: FIMAGING 12:56 | PROVIDERS: ATTEND Obstetrics & Gynecology | DX: Z13.820 Encounter for screening for osteoporosis (principal); M81.0 Age-related osteoporosis without current pathological fracture; Z78.0 Asymptomatic menopausal state ==

== ENCOUNTER → 2018-09-14 | Outpatient (CLI) | payer OTHER | LOC: FIMAGING 13:20 | PROVIDERS: ATTEND Obstetrics & Gynecology | DX: Z12.31 Encounter for screening mammogram for malignant neoplasm of breast (principal) ==